=== PATIENT | male | born 1965 | race Caucasian/White ===

== ENCOUNTER 2024-11-14 05:54 | Day surgery (SDC) | payer BC ==
[2024-11-14 06:21] VITALS: RESP 16
[2024-11-14] MEDS ORDERED: propofoL IV ONE ×2 (06:56→07:15)
[2024-11-14 07:46] VITALS: BP 122/54; TEMP 97.6
[2024-11-14 07:58] VITALS: PULSE 67; O2SAT 98
--- NOTE | 2024-11-17 08:43 | OP ---
SURGERY DATE/TIME: 11/14/2024 [id number] PREOPERATIVE DIAGNOSIS: Screening exam. POSTOPERATIVE DIAGNOSIS: Small polyps in the rectosigmoid area. PROCEDURE: Colonoscopy with cold forceps biopsy. SURGEON: Chi Coreas MD. ANESTHESIA: Medication given by the anesthesia department. INDICATIONS: The patient is a 49-year-old white male patient, presenting now for screening colonoscopy. The patient was apprised of the risks of the procedure including risk of perforation, phlebitis, untoward reaction to medication, bleeding, and missed lesions. The patient verbalized his understanding and desired to have procedure performed. DESCRIPTION OF PROCEDURE AND FINDINGS: The patient was given medication by the anesthesia department and had continuous pulse oximetry, ECG monitoring, and intermittent blood pressure monitoring during the examination. He was placed in left lateral decubitus position. Digital rectal examination was performed and revealed normal anal sphincter tone, no masses, and a normal prostate. The flexible Olympus videocolonoscope was used to intubate the rectum. A view of the colon was developed sequentially to the cecum. Upon insertion and withdrawal, it was noted multiple small, hyperplastic-appearing polyps in the rectosigmoid area. These were biopsied in multiple areas to rule out any adenomatous change. No other lesions being noted, the scope was removed from the patient who tolerated the procedure well and was sent back to outpatient recovery in good condition. The prep was noted to be fair.
== END 2024-11-14 08:10 | disposition home or self-care (01) ==
LOC: SDC 05:54
PROVIDERS: ATTEND Family Medicine
DX: Z12.11 Encounter for screening for malignant neoplasm of colon (principal); K63.5 Polyp of colon